=== PATIENT | male | born 1985 | race Caucasian/White ===

== ENCOUNTER 2017-07-24 05:52 | Emergency (ER) | payer BC ==
[~2017-07-24] VITALS: Ht 175.3 cm; Wt 83.9 kg
--- NOTE | 2017-07-24 06:50 | NUR ---
PT PRESENTED TO THE ER WITH A C/O LEFT SIDED BACK PAIN SINCE LAST NIGHT. PT STATED THAT HE HAS HAD IT BEFORE AND IT USUSALLY GOES AWAY. PT STATED THAT HE WAS NOT ABLE TO STRAIGHTEN UP AFTER SITTING AND THE PAIN WAS SO BAD.
[2017-07-24] MEDS ORDERED: HYDROCODONE/APAP 5/325MG 1 EACH TABLET PO ONE ×2 (07:00)
[2017-07-24] MEDS ORDERED: IBUPROFEN 400 MG TABLET PO ONE (07:00)
[2017-07-24] MEDS ORDERED: HYDROCODONE/APAP 5/325MG 1 EACH TABLET ONE (07:03)
[2017-07-24] MEDS ORDERED: IBUPROFEN 400 MG TABLET ONE (07:03)
--- NOTE | 2017-07-24 07:07 | NUR ---
PT REC'D MEDICATION ORDERED. PT IS TRYING TO GIVE A URINE SAMPLE.
--- NOTE | 2017-07-24 07:09 | NUR ---
REPORT GIVEN TO MACIE FRAZIER FOR [facility]ERY.
[2017-07-24 07:23] LABS: APPEARANCE,URINE CLEAR (CLEAR); BILIRUBIN,URINE NEGATIVE (NEGATIVE); BLOOD, URINE NEGATIVE Ery/uL (NEGATIVE); COLOR,URINE YELLOW (YELLOW); KETONES,URINE NEGATIVE (NEGATIVE); LEUKOCYTE ESTERASE ,URINE NEGATIVE (NEGATIVE); NITRITE, URINE NEGATIVE (NEGATIVE); PROTEIN,URINE NEGATIVE (NEGATIVE); UGLUCOSE NEGATIVE (NEGATIVE); UROBILINOGEN,URINE 0.2 EU/dL (0.2)
[2017-07-24 08:49] VITALS: BP 128/76
--- NOTE | 2017-07-24 08:52 | NUR ---
Patient discharged to home in stable condition. Written and verbal after care instructions given. Patient verbalizes understanding of instruction.
== END 2017-07-24 08:51 | disposition home or self-care (01) ==
LOC: ER 05:52
DX: M54.5 Low back pain (principal)
CPT/HCPCS: 81001; 99283; A4606; Z7610; 81000-TC